=== PATIENT | male | born 1960 | race Caucasian/White ===

== ENCOUNTER 2017-07-24 21:41 | Observation (INO) | payer OTHER ==
[~2017-07-24] VITALS: Ht 175.3 cm; Wt 106.6 kg
--- NOTE | 2017-07-24 21:57 | RAD ---
CT CODE STROKE HEAD WO History: 778502.001 confusion, code stroke Comparison: None. Technique: Noncontrast CT imaging was performed of the head. Exposure: One or more of the following individualized dose reduction techniques were utilized for this examination: 1. Automated exposure control 2. Adjustment of the mA and/or kV according to patient size 3. Use of iterative reconstruction technique. Findings: No acute extra-axial or parenchymal hemorrhage is identified. There is no significant intra-axial mass effect, midline shift, or extra-axial fluid collection. The lee-white differentiation of the major vascular territories is preserved. The ventricles, sulci, and cisterns are within normal limits in size and configuration. There is a small old lacunar infarct of the right frontal white matter. The mastoid air cells and the visualized paranasal sinuses are aerated. No acute calvarial abnormality is identified. Impression: 1. No acute intracranial abnormality is identified. If there is concern for evolving or acute ischemia, followup CT or MRI could be beneficial. FOR INTERNAL CODING PURPOSES Critical result: Findings discussed with Dr. Bay at 07/24/2017 9:52 PM. RESULT CODE: (C) Electronically signed by: Edison Matias MD (07/24/2017 9:54 PM) [facility]
--- NOTE | 2017-07-24 22:06 | EKG ---
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
[2017-07-24 22:14] LABS: BASO % 1 % (0-3); EOS # 0.1 x10^3/uL (0.0-0.7); EOS % 2 % (0-3); HEMATOCRIT 43.8 % (39.0-53.0); HEMOGLOBIN 15.4 g/dL (13.0-17.5); LYMPH # 1.9 x10^3/uL (1.0-4.8); LYMPH % 24 % (24-48); MEAN CORPUSCULAR HEMOGLOBIN 30 pg (25-35); MEAN CORPUSCULAR HGB CONC 35 g/dL (31-37); MEAN CORPUSCULAR VOLUME 85 fL (79-100); MONO # 0.8 x10^3/uL (0.0-1.1); MONO % 10 % (0-9); NEUT % 64 % (31-73); PLATELET COUNT 215 x10^3/uL (140-400); RED BLOOD COUNT 5.16 x10^6/uL (4.30-5.70); RED CELL DISTRIBUTION WIDTH 14.2 % (11.5-14.5); WHITE BLOOD COUNT 7.9 x10^3/uL (4.0-11.0)
[2017-07-24 22:25] LABS: ALBUMIN 3.8 g/dL (3.4-5.0); ALBUMIN/GLOBULIN RATIO 1.1 (1.0-1.7); CALCIUM 8.5 mg/dL (8.5-10.1); CREATININE 1.1 mg/dL (0.7-1.3); GFR 69.2; POTASSIUM 3.6 mmol/L (3.5-5.1); TOTAL BILIRUBIN 0.3 mg/dL (0.2-1.0); TOTAL PROTEIN 7.2 g/dL (6.4-8.2)
--- NOTE | 2017-07-24 22:53 | PHYS DOC ---
General Chief Complaint: WEAKNESS/GENERALIZED Stated Complaint: NECK PAIN Time Seen by MD: 21:44 Source: patient Exam Limitations: no limitations Problems: History of Present Illness Initial Comments Patient is a 57-year-old male the ED by EMS with jaw/neck discomfort and left arm numbness. Patient states that these symptoms started approximately 30 minutes prior to ED arrival while sitting on the sofa at home watching TV with his immediately after intercourse. He states that he had some mild shortness of breath and nausea with no vomiting he denies any actual chest pain, headache, focal weakness, or dyspnea. Last by mouth intake was approximately 6 PM this evening. Patient states that on my evaluation his symptoms have resolved completely and he feels like he wants to go home. A code stroke was called by the ED staff on patient arrival and CT of the head is negative for any acute findings. Patient took an aspirin this evening shortly before symptoms onset. Patient follows at [facility], he has history of hypertension, hyperlipidemia, and TIA. He had a nuclear stress test at a few days ago he does not have results of that study. His father developed coronary artery disease at 55 years of age and has had multiple CABGs and a defibrillator. Timing/Duration: 1/2 hour Severity: moderate Modifying Factors: improves with other Associated Symptoms: nausea/vomiting, other Allergies: Coded Allergies: No Known Drug Allergies (Unverified , 07/24/17) Past Medical History Medical History: high cholesterol, hypertension, other (TIA) Surgical History: tonsillectomy Social History Smoker: quit greater than 1 year Alcohol: occasionally Drugs: none Review of Systems Constitutional: denies chills, diaphoresis, denies fever, denies malaise, denies weakness EENTM: see HPI, denies eye pain, denies blurred vision, denies ear pain, denies nose pain Respiratory: denies cough, shortness of breath, denies wheezing Cardiovascular: see HPI, denies palpitations, denies syncope Gastrointestinal: denies abdominal pain, nausea, denies vomiting Musculoskeletal: see HPI, denies back pain, denies joint pain, denies joint swelling Psychiatric/Neurological: see HPI, denies headache, denies paresthesia, denies pre-existing deficit, denies seizure Hematologic/Lymphatic: denies blood clots, denies easy bleeding, denies easy bruising Physical Exam General Appearance: no apparent distress, obese Eyes: bilateral eye normal inspection, bilateral eye PERRL, bilateral eye EOMI Ear, Nose, Throat: hearing grossly normal, normal ENT inspection, normal pharynx Neck: non-tender, supple Respiratory: chest non-tender, normal breath sounds, no respiratory distress Cardiovascular: normal peripheral pulses, regular rate, rhythm, no edema Gastrointestinal: normal bowel sounds, non tender, soft Back: no CVA tenderness, no vertebral tenderness Extremities: normal range of motion, non-tender, normal inspection 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 PHYSICIAN: EPIFANIO SALCEDO DO REASON: confusion PROCEDURE: CT CODE STROKE HEAD WO CT CODE STROKE HEAD WO History: 030446.001 confusion, code stroke Comparison: None. Technique: Noncontrast CT imaging was performed of the head. Exposure: One or more of the following individualized dose reduction techniques were utilized for this examination: 1. Automated exposure control 2. Adjustment of the mA and/or kV according to patient size 3. Use of iterative reconstruction technique. Findings: No acute extra-axial or parenchymal hemorrhage is identified. There is no significant intra-axial mass effect, midline shift, or extra-axial fluid collection. The lee-white differentiation of the major vascular territories is preserved. The ventricles, sulci, and cisterns are within normal limits in size and configuration. There is a small old lacunar infarct of the right frontal white matter. The mastoid air cells and the visualized paranasal sinuses are aerated. No acute calvarial abnormality is identified. Impression: 1. No acute intracranial abnormality is identified. If there is concern for evolving or acute ischemia, followup CT or MRI could be beneficial. FOR INTERNAL CODING PURPOSES Critical result: Findings discussed with Dr. Salcedo at 07/24/2017 9:52 PM. RESULT CODE: (C) Electronically signed by: Carline Matias MD (07/24/2017 9:54 PM) [facility] DICTATED AND SIGNED BY: CARLINE MATIAS MD DATE: 07/24/172151 CC: EPIFANIO SALCEDO DO ~ Given the patient's coronary artery disease risks tonight symptoms are consistent with a chest pain equivalent. EKG: Normal sinus rhythm 88 bpm, right axis deviation with some contour abnormalities no STEMI. Interpreted by Dr. Salcedo. Portable chest x-ray with no acute processes interpreted by Dr. Salcedo. Lab evaluation reassuring. 2342: I discussed results with the patient at length. Given the temporal in nature of his symptoms as well as his risk factors I recommend observation admission for serial cardiac enzymes. The patient has been asymptomatic since ED arrival and is considering signing out AMA. He is currently discussing this with his spouse. 0002: RN notified me pt agreeable to observation admission, Dr Fraire paged. 0007: I discussed the patient with Dr. Fraire who accepts observation telemetry admission to follow cardiac enzymes. Departure Time of Disposition: 00:07 Disposition: ADMITTED INPATIENT Diagnosis: chest pain, hypertension, hyperlipidemia Condition: IMPROVED Additional Instructions: Tele/obs admission to follow serial cardiac enzymes/rule out [place], Dr Fraire is accepting. EPIFANIO SALCEDO DO Jul 24, 2017 22:53
[2017-07-24 23:17] LABS: BARBITURATES NEG (NEG); BENZODIAZEPINES NEG (NEG); CANNABINOIDS NEG (NEG); COCAINE NEG (NEG); METHADONE NEG (NEG); OPIATES NEG (NEG); PHENCYCLIDINE NEG (NEG)
[2017-07-24 23:18] LABS: AMPHETAMINE/METHAMPHETAMINE NEG (NEG)
[2017-07-24 23:32] LABS: SEDIMENTATION RATE 4 (0-15)
[2017-07-25] MEDS ORDERED: ACETAMINOPHEN 325 MG TABLET PO PRN (00:15)
[2017-07-25] MEDS ORDERED: ONDANSETRON PF 4 MG/2 ML VIAL. IV PRN (00:15)
[2017-07-25] MEDS ORDERED: NITROGLYCERIN SUBLINGUAL 0.4 MG BOTTLE OF 25. SL PRN (00:15)
[2017-07-25 00:45] VITALS: BP 138/88
[2017-07-25 00:50] VITALS: BP 150/100
[2017-07-25 03:00] VITALS: BP 110/73
[2017-07-25] MEDS ORDERED: ASPI81TA50 (04:15)
[2017-07-25] MEDS ORDERED: LISI10TA2 (04:15)
[2017-07-25] MEDS ORDERED: HYDR12.58 (04:15)
[2017-07-25] MEDS ORDERED: ATOR40TA59 (04:15)
[2017-07-25 04:39] LABS: BASO # 0.1 x10^3/uL (0.0-0.2); BASO % 1 % (0-3); EOS % 0 % (0-3); HEMOGLOBIN 14.9 g/dL (13.0-17.5); LYMPH # 1.4 x10^3/uL (1.0-4.8); LYMPH % 17 % (24-48); MEAN CORPUSCULAR HEMOGLOBIN 30 pg (25-35); MEAN CORPUSCULAR HGB CONC 36 g/dL (31-37); MEAN CORPUSCULAR VOLUME 85 fL (79-100); MONO # 0.7 x10^3/uL (0.0-1.1); MONO % 8 % (0-9); NEUT # 5.9 x10^3uL (1.8-7.7); NEUT % 74 % (31-73); PLATELET COUNT 213 x10^3/uL (140-400); RED BLOOD COUNT 4.93 x10^6/uL (4.30-5.70); RED CELL DISTRIBUTION WIDTH 14.3 % (11.5-14.5)
[2017-07-25 04:56] LABS: ALBUMIN 3.6 g/dL (3.4-5.0); ALBUMIN/GLOBULIN RATIO 1.1 (1.0-1.7); CALCIUM 8.7 mg/dL (8.5-10.1); CREATININE 1.1 mg/dL (0.7-1.3); GFR 69.2; MAGNESIUM 2.2 mg/dL (1.8-2.4); POTASSIUM 4.3 mmol/L (3.5-5.1); TOTAL BILIRUBIN 0.3 mg/dL (0.2-1.0); TOTAL PROTEIN 6.9 g/dL (6.4-8.2)
[2017-07-25 05:53] VITALS: BP 128/78
--- NOTE | 2017-07-25 07:44 | RAD ---
Portable chest, 07/24/2017: History: Chest and throat tightness The heart size and pulmonary vascularity are normal. The lungs are clear. There is no evidence of pleural fluid. IMPRESSION: No acute cardiopulmonary abnormality is detected.
--- NOTE | 2017-07-25 09:03 | PDOC2 ---
KENZIE CHRISTIANSON APRN 07/25/17 0903: CONSULT Date of Admission DATE: 07/25/17 TIME: 09:03 Reason for Consult: chest pain History of Present Illness Mr March is a 57 year old male with history of hyperlipidemia and newly diagnosed hypertension. He presented to the ED yesterday evening with complaints of chest tightness that radiated up into his neck and jaw with associated dyspnea and diaphoresis. His discomfort started post sexual activity , about 30 minutes prior to presenting to the ED. He was given NTG in the ED which he reports improved his discomfort. He reports a similar episode for which he was taken to [facility] within the last 2 months as well as a visit and workup for TIA due to an episode of sudden onset confusion with associated diaphoresis. His echocardiogram revealed EF 55%, no wall motion abn, borderline LVH and grade 1 diastolic dysfunction. Bubble study was negative. He recently underwent lexiscan myocardial perfusion imaging that was also negative. He denies any palpitations, lightheadedness or syncope. He did feel like he might pass out during the initial episode of chest discomfort. He was found to have uncontrolled blood pressure during both ER visits and recently started on lisinopril with HCTZ which he reports tolerating well. He denies any congestive symptoms or edema. He was experiencing left lower extremity swelling and pain in March for which he underwent venous duplex several times and ultimately was diagnosed with a hematoma in his left calf. This has resolved. He denies any regular exercise but is able to walk a flight of stairs without symptoms normally. Past Medical History hyperlipidemia, recently diagnosed HTN, TIA, Left calf hematoma Past Surgical History: Tonsillectomy Family History Father - CAD/CABG and ICD in his 50s 2 brothers with CAD Sister with hyperlipidemia Social History non smoker, no significant ETOH, no illicit drugs Current Medications Current Medications Ondansetron HCl (Zofran) 4 mg PRN Q4HRS PRN IV NAUSEA/VOMITING; Start 07/25/17 at 00:15; Stop 07/26/17 at 00:14 Acetaminophen (Tylenol) 650 mg PRN Q4HRS PRN PO FEVER; Start 07/25/17 at 00:15 ; Stop 07/26/17 at 00:14 Nitroglycerin (Nitrostat) 0.4 mg PRN Q5MIN PRN SL CHEST PAIN; Start 07/25/17 at 00:15; Stop 07/26/17 at 00:14 Active Scripts Active Reported Atorvastatin Calcium 40 Mg Tablet Hydrochlorothiazide Tablet (Hydrochlorothiazide) 12.5 Mg Tablet Lisinopril 10 Mg Tablet Aspir-Low (Aspirin) 81 Mg Tablet. Allergies: Coded Allergies: No Known Drug Allergies (Unverified , 07/24/17) Review of System as per HPI or negative General: Alert, Oriented X3, Cooperative, No acute distress HEENT: Atraumatic, EOMI, Mucous membr. moist/pink, Other (no carotid bruits) Lungs: Clear to auscultation, Normal air movement Heart: Regular rate, Normal S1, Normal S2, Other (no significant murmurs, no gallops, clicks or rubs) Abdomen: Normal bowel sounds, Soft, No tenderness Extremities: No clubbing, No cyanosis, No edema, Normal pulses Neuro: Normal speech, Strength at 5/5 X4 ext, Cranial nerves 3-12 NL Psych/Mental Status: Mental status NL, Mood NL VITALS Vital Signs Date Time Temp Pulse Resp B/P (MAP) Pulse Ox O2 Delivery O2 Flow Rate FiO2 07/25/17 05:53 97.9 76 128/78 (95) 96 Room Air 07/25/17 03:00 16 Labs Laboratory Tests Test 07/24/17 21:46 07/24/17 22:50 07/25/17 04:12 White Blood Count 7.9 x10^3/uL (4.0-11.0) 8.0 x10^3/uL (4.0-11.0) Red Blood Count 5.16 x10^6/uL (4.30-5.70) 4.93 x10^6/uL (4.30-5.70) Hemoglobin 15.4 g/dL (13.0-17.5) 14.9 g/dL (13.0-17.5) Hematocrit 43.8 % (39.0-53.0) 42.0 % (39.0-53.0) Mean Corpuscular Volume 85 fL (79-100) 85 fL (79-100) Mean Corpuscular Hemoglobin 30 pg (25-35) 30 pg (25-35) Mean Corpuscular Hemoglobin Concent 35 g/dL (31-37) 36 g/dL (31-37) Red Cell Distribution Width 14.2 % (11.5-14.5) 14.3 % (11.5-14.5) Platelet Count 215 x10^3/uL (140-400) 213 x10^3/uL (140-400) Neutrophils (%) (Auto) 64 % (31-73) 74 % (31-73) Lymphocytes (%) (Auto) 24 % (24-48) 17 % (24-48) Monocytes (%) (Auto) 10 % (0-9) 8 % (0-9) Eosinophils (%) (Auto) 2 % (0-3) 0 % (0-3) Basophils (%) (Auto) 1 % (0-3) 1 % (0-3) Neutrophils # (Auto) 5.0 x10^3uL (1.8-7.7) 5.9 x10^3uL (1.8-7.7) Lymphocytes # (Auto) 1.9 x10^3/uL (1.0-4.8) 1.4 x10^3/uL (1.0-4.8) Monocytes # (Auto) 0.8 x10^3/uL (0.0-1.1) 0.7 x10^3/uL (0.0-1.1) Eosinophils # (Auto) 0.1 x10^3/uL (0.0-0.7) 0.0 x10^3/uL (0.0-0.7) Basophils # (Auto) 0.0 x10^3/uL (0.0-0.2) 0.1 x10^3/uL (0.0-0.2) Erythrocyte Sedimentation Rate 4 (0-15) Prothrombin Time 9.9 SEC (9.4-11.4) Prothromb Time International Ratio 1.0 (0.9-1.1) Activated Partial Thromboplast Time 28 SEC (23-33) Sodium Level 141 mmol/L (136-145) 142 mmol/L (136-145) Potassium Level 3.6 mmol/L (3.5-5.1) 4.3 mmol/L (3.5-5.1) Chloride Level 103 mmol/L (98-107) 105 mmol/L (98-107) Carbon Dioxide Level 31 mmol/L (21-32) 29 mmol/L (21-32) Anion Gap 7 (6-14) 8 (6-14) Blood Urea Nitrogen 15 mg/dL (8-26) 13 mg/dL (8-26) Creatinine 1.1 mg/dL (0.7-1.3) 1.1 mg/dL (0.7-1.3) Estimated GFR (Cockcroft-Gault) 69.2 69.2 BUN/Creatinine Ratio 14 (6-20) 12 (6-20) Glucose Level 121 mg/dL (70-99) 120 mg/dL (70-99) Calcium Level 8.5 mg/dL (8.5-10.1) 8.7 mg/dL (8.5-10.1) Total Bilirubin 0.3 mg/dL (0.2-1.0) 0.3 mg/dL (0.2-1.0) Aspartate Amino Transf (AST/SGOT) 23 U/L (15-37) 20 U/L (15-37) Alanine Aminotransferase (ALT/SGPT) 43 U/L (16-63) 42 U/L (16-63) Alkaline Phosphatase 88 U/L (46-116) 74 U/L (46-116) Creatine Kinase 86 U/L (39-308) Troponin I Quantitative < 0.017 ng/mL (0-0.055) < 0.017 ng/mL (0-0.055) Total Protein 7.2 g/dL (6.4-8.2) 6.9 g/dL (6.4-8.2) Albumin 3.8 g/dL (3.4-5.0) 3.6 g/dL (3.4-5.0) Albumin/Globulin Ratio 1.1 (1.0-1.7) 1.1 (1.0-1.7) Ethyl Alcohol Level < 10 mg/dL (0-10) Urine Opiates Screen Neg (NEG) Urine Methadone Screen Neg (NEG) Urine Barbiturates Neg (NEG) Urine Phencyclidine Screen Neg (NEG) Urine Amphetamine/Methamphetamine Neg (NEG) Urine Benzodiazepines Screen Neg (NEG) Urine Cocaine Screen Neg (NEG) Urine Cannabinoids Screen Neg (NEG) Urine Ethyl Alcohol Neg (NEG) Magnesium Level 2.2 mg/dL (1.8-2.4) Images EKG - sinus rhythm, right axis, R v2, nonspecific lateral T abn. CXR - no acute abn Head CT - Impression: 1. No acute intracranial abnormality is identified. If there is concern for evolving or acute ischemia, followup CT or MRI could be beneficial. Assessment/Plan 1. Exertional chest pain relieved with NTG suspicious for angina - FL ruled out. Recent MPI was normal however with significant family history of premature coronary disease and multiple risk factors as well as recurrent episodes of chest pain, will recommend cardiac cath for definitive evaluation. Continue aspirin, add beta uriah, check lipids and transfer to [facility] for cath today. Keep NPO. 2. hypertension - resume home meds 3. hyperlipidemia - continue statin and check FLP. 4. PAD - moderate renal arterial stenosis by duplex recently. Problems: ELSY BALDERRAMA MD 07/25/17 2224: CONSULT Allergies: Coded Allergies: No Known Drug Allergies (Unverified , 07/24/17) Assessment/Plan Pt. seen and examined. underwent PCI to the RCA [employer] care will follow along Problems: KENZIE CHRISTIANSON APRN Jul 25, 2017 09:03 ELSY BALDERRAMA MD Jul 25, 2017 22:24
[2017-07-25 10:26] VITALS: BP 124/74
[2017-07-25] MEDS ORDERED: METOPROLOL TART IMMED RELEASE 25 MG TABLET PO SCH (12:00)
[2017-07-25] MEDS ORDERED: ASPIRIN ENTERIC COATED 325 MG TABLET.DR. PO SCH (12:00)
[2017-07-25] MEDS ORDERED: ATORVASTATIN CALCIUM 20 MG TABLET PO SCH (21:00)
--- NOTE | 2017-07-25 22:30 | DS ---
DATE OF DISCHARGE: 07/25/2017 SHORT STAY SUMMARY Stay was greater than 8 hours and less than 24. DISCHARGE DIAGNOSES: 1. Chest pain, suspect anginal equivalent. 2. Hyperlipidemia. 3. Hypertension. 4. History of transient ischemic attack. 5. Former tobacco use disorder. HOSPITAL COURSE: A 57-year-old male who was admitted right after midnight from the Emergency Room where he presented with jaw and neck discomfort and left arm numbness. These symptoms started 30 minutes prior to coming to the ED while he was sitting at home watching TV with his immediately after intercourse. He also has some shortness of breath and nausea, but no vomiting. A code stroke was called in the Emergency Room and he had a CT of the head. Vital signs 128/78, pulse 76, pulse ox 96% on room air, temperature 97.9. Please note the patient was not examined because he was not seen directly by myself. He was seen by Cardiology, who recommended a transfer. REVIEW OF SYSTEMS: Positive for diaphoresis, shortness of breath, nausea. PLAN: After being seen by Cardiology they have felt that he should be transferred to [place] for a semi-emergent catheterization this afternoon. PAST MEDICAL HISTORY: He recently was just seen in and had a stress test, which evidently was negative. FAMILY HISTORY: Positive for coronary artery disease in his father and who has had multiple CABGs and a defibrillator. LABORATORY DATA: Troponins were negative x 3. EKG shows no NSTEMI. DISPOSITION: To transfer to [place] for cardiac catheterization. ELDA DONALD DO DR: WIL/rodolfo JOB#: [id number] / [id number]
== END 2017-07-25 11:25 | disposition short-term general hospital (02) ==
LOC: ER 21:41 → 1 SOUTH 07-25 00:19 → ER 07-25 00:35
PROVIDERS: ADMIT Family Medicine; ATTEND Family Medicine
DX: R07.9 Chest pain, unspecified (principal); E78.5 Hyperlipidemia, unspecified; I10 Essential (primary) hypertension; E78.00 Pure hypercholesterolemia, unspecified; I77.1 Stricture of artery; Z82.49 Family history of ischemic heart disease and other diseases of the circulatory system; Z86.73 Personal history of transient ischemic attack (TIA), and cerebral infarction without residual deficits; Z87.891 Personal history of nicotine dependence
CPT/HCPCS: 36415; 70450; 71010; 80053; 80061; 80307; 82550; 83735; 84484; 85025; 85610; 85651; 85730; 93005; 99285; G0378; G0480; G0379; G0479

== ENCOUNTER 2019-09-24 14:51 | Emergency (ER) | payer OTHER ==
[~2019-09-24] VITALS: Ht 175.3 cm; Wt 110.2 kg
[~2019-09-24 14:51] MED LIST: ASPI81TA50; ATOR40TA59; HYDR12.58; LISI10TA2
[2019-09-24 15:28] LABS: INFLUENZA A PATIENT NEGATIVE (NEGATIVE); INFLUENZA B PATIENT NEGATIVE (NEGATIVE)
--- NOTE | 2019-09-24 15:35 | PHYS DOC ---
Past History Past Medical History: High Cholesterol, Hypertension, TIA Past Surgical History: Tonsillectomy Additional Past Surgical Histo: 2 stents Alcohol Use: Occasionally Drug Use: None Adult General Chief Complaint Chief Complaint: FLU SYMPTOM HPI HPI 59-year-old male presents with cough, congestion, body aches for the last 4 days. He started to have a fever and worsening body aches yesterday and it is worse today. He went to primary care physician yesterday that his achalasia was negative. He was placed on amoxicillin for an unspecified bacterial infection and given Robitussin for his cough. Patient is a fever up to 102 at home and is concerned it may be more than previously thought. He is taking his medication. Review of Systems Review of Systems Constitutional: Fever[] Eyes: Denies change in visual acuity, redness, or eye pain [] HENT: nasal congestion [] Respiratory: Cough with shortness of breath [] Cardiovascular: No additional information not addressed in HPI [] GI: Denies abdominal pain, nausea, vomiting, bloody stools or diarrhea [] : Denies dysuria or hematuria [] Musculoskeletal: Denies back pain or joint pain [] Integument: Denies rash or skin lesions [] Neurologic: Denies headache, focal weakness or sensory changes [] Endocrine: Denies polyuria or polydipsia [] All other systems were reviewed and found to be within normal limits, except as documented in this note. Allergies Allergies Allergies Coded Allergies Type Severity Reaction Last Updated Verified No Known Drug Allergies 07/24/17 No Physical Exam Physical Exam Constitutional: Well developed, well nourished, no acute distress, non-toxic appearance. [] HENT: Normocephalic, atraumatic, bilateral external ears normal, oropharynx moist, no oral exudates, nose normal. [] Eyes: PERRLA, EOMI, conjunctiva normal, no discharge. [] Neck: Normal range of motion, no tenderness, supple, no stridor. [] Cardiovascular:Heart rate regular rhythm, no murmur [] Lungs & Thorax: Coughing. Bilateral breath sounds clear to auscultation [] Abdomen: Bowel sounds normal, soft, no tenderness, no masses, no pulsatile masses. [] Skin: Warm, dry, no erythema, no rash. [] Back: No tenderness, no CVA tenderness. [] Extremities: No tenderness, no cyanosis, no clubbing, ROM intact, no edema. [] Neurologic: Alert and oriented X 3, normal motor function, normal sensory function, no focal deficits noted. [] Psychologic: Affect normal, judgement normal, mood normal. [] Current Patient Data Vital Signs Vital Signs Date Time Temp Pulse Resp B/P (MAP) Pulse Ox O2 Delivery O2 Flow Rate FiO2 09/24/19 15:11 99.2 78 16 95 Room Air Lab Results Laboratory Tests Test 09/24/19 14:56 Influenza Type A (Rapid) Negative (NEGATIVE) Influenza Type B (Rapid) Negative (NEGATIVE) EKG EKG [] Radiology/Procedures Radiology/Procedures [] Impressions: EXAM: Chest, 2 views. HISTORY: Cough. COMPARISON: 07/24/2017 FINDINGS: 2 views of the chest are obtained. There is anterior inferior left upper lobe infiltrate. There is no pleural effusion or pneumothorax. The heart is normal in size. IMPRESSION: Left upper lobe infiltrate. Follow-up to confirm resolution. Electronically signed by: Roseanne Garcia MD (09/24/2019 3:52 PM) [place] [id number] DICTATED AND SIGNED BY: ROSEANNE GARCIA MD DATE: 09/24/19 1559 CC: KAREN FLANAGAN DO; NINA SUERO MD ~ Course & Med Decision Making Course & Med Decision Making Pertinent Labs and Imaging studies reviewed. (See chart for details) The patient is negative for influenza. His chest x-ray does show right upper lobe infiltrate. I will treat him with a gram of Rocephin in the ED as well as 500 mg of azithromycin. I will discharge him with an additional 4 days of azithromycin. He is stable for discharge at this time. [] Dragon Disclaimer Dragon Disclaimer This electronic medical record was generated, in whole or in part, using a voice recognition dictation system. Departure Departure: Impression: Primary Impression: Pneumonia Disposition: HOME/RESIDENCE PRIOR TO ADM Condition: STABLE Referrals: NINA SUERO MD (PCP) Patient Instructions: Pneumonia, Adult, [id number] Scripts Azithromycin (AZITHROMYCIN TABLET) 250 Mg Tablet 250 MG PO DAILY for ANTI-BIOTIC for 4 Days, #4 TAB 0 Refills Prov: KAREN FLANAGAN DO 09/24/19 Problem Qualifiers Primary Impression: Pneumonia Pneumonia type: due to unspecified organism Laterality: right Lung location: upper lobe of lung Qualified Codes: J18.9 - Pneumonia, unspecified organism KAREN FLANAGAN DO Sep 24, 2019 15:35
--- NOTE | 2019-09-24 15:55 | RAD ---
EXAM: Chest, 2 views. HISTORY: Cough. COMPARISON: 07/24/2017 FINDINGS: 2 views of the chest are obtained. There is anterior inferior left upper lobe infiltrate. There is no pleural effusion or pneumothorax. The heart is normal in size. IMPRESSION: Left upper lobe infiltrate. Follow-up to confirm resolution. Electronically signed by: Roseanne Garcia MD (09/24/2019 3:52 PM) [place] [id number]
[2019-09-24] MEDS ORDERED: AZIT250T6 PO (16:04)
[2019-09-24 16:07] VITALS: BP 125/79
[2019-09-24] MEDS ORDERED: cefTRIAXone IM 1 GM VIAL IM ONE (16:15)
[2019-09-24] MEDS ORDERED: AZITHROMYCIN 250 MG TABLET. PO ONE (16:15)
== END 2019-09-24 16:34 | disposition home or self-care (01) ==
LOC: ER 14:51
DX: J18.9 Pneumonia, unspecified organism (principal); E78.00 Pure hypercholesterolemia, unspecified; I10 Essential (primary) hypertension; Z86.73 Personal history of transient ischemic attack (TIA), and cerebral infarction without residual deficits; Z90.89 Acquired absence of other organs
CPT/HCPCS: 71046; 87804; 96372; 99285; J0456; J0696

== ENCOUNTER 2021-08-28 16:53 | Emergency (ER) | payer OTHER ==
[~2021-08-28] VITALS: Ht 175.3 cm; Wt 117.3 kg
[~2021-08-28 16:53] MED LIST changes: +AZIT250T6 PO; +LISI10TA16; -LISI10TA2
--- NOTE | 2021-08-28 17:43 | EKG ---
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
--- NOTE | 2021-08-28 17:59 | RAD ---
AP chest. HISTORY: Short of breath AP view was taken of the chest. Patient's taken a poor inspiration. There are no acute infiltrates. T here is no effusion. Heart is normal in size. IMPRESSION: 1. No acute infiltrates. Electronically signed by: Yan Alva MD (08/28/2021 5:57 PM) [facility]
[2021-08-28 19:31] LABS: BASO % 1 % (0-3); EOS # 0.1 x10^3/uL (0.0-0.7); EOS % 2 % (0-3); HEMATOCRIT 42.3 % (39.0-53.0); HEMOGLOBIN 14.4 g/dL (13.0-17.5); LYMPH # 0.7 x10^3/uL (1.0-4.8); LYMPH % 10 % (24-48); MEAN CORPUSCULAR HEMOGLOBIN 30 pg (25-35); MEAN CORPUSCULAR HGB CONC 34 g/dL (31-37); MEAN CORPUSCULAR VOLUME 87 fL (79-100); MONO # 0.9 x10^3/uL (0.0-1.1); MONO % 14 % (0-9); NEUT # 4.8 x10^3uL (1.8-7.7); NEUT % 73 % (31-73); PLATELET COUNT 168 x10^3/uL (140-400); RED BLOOD COUNT 4.84 x10^6/uL (4.30-5.70); RED CELL DISTRIBUTION WIDTH 14.1 % (11.5-14.5); WHITE BLOOD COUNT 6.5 x10^3/uL (4.0-11.0)
[2021-08-28 19:39] LABS: CALCIUM 8.1 mg/dL (8.5-10.1); CREATININE 0.8 mg/dL (0.7-1.3); GFR 98.6; POTASSIUM 3.8 mmol/L (3.5-5.1)
[2021-08-28 19:58] LABS: ALBUMIN 3.5 g/dL (3.4-5.0); ALBUMIN/GLOBULIN RATIO 0.9 (1.0-1.7); TOTAL BILIRUBIN 0.6 mg/dL (0.2-1.0); TOTAL PROTEIN 7.2 g/dL (6.4-8.2)
[2021-08-28] MEDS ORDERED: BENZ100C PO (20:44)
[2021-08-28] MEDS ORDERED: AMOX1TAB61 PO (20:44)
--- NOTE | 2021-08-28 20:44 | PHYS DOC ---
Past History Past Medical History: High Cholesterol, Hypertension, TIA (DEEPAK CHAUDHRY APRN) Past Surgical History: Tonsillectomy Additional Past Surgical Histo: 2 stents (DEEPAK CHAUDHRY APRN) Alcohol Use: Occasionally Drug Use: None (DEEPAK CHAUDHRY APRN) Adult General Chief Complaint Chief Complaint: SHORTNESS OF BREATH HPI HPI Patient is a 51-year-old male presents to the emergency department complaining of nasal congestion and upper chest congestion with productive yellow phlegm with cough for the past week. Patient denies recent fever or chills, denies chest pains. States he does get short of breath at times. Denies diaphoretic episodes. Denies nausea, vomiting, diarrhea or abdominal pains. Patient denies body aches or loss of taste or loss of smell. Patient reports receiving the COVID-19 virus vaccine. Patient denies other physical complaints or physical concerns. (DEEPAK CHAUDHRY APRN) Review of Systems Review of Systems 14 body systems of review of systems have been reviewed. See HPI for pertinent positives and negative responses, otherwise all other systems are negative, nonpertinent or noncontributory. Constitutional: Negative except as outlined in HPI above. Skin: Negative except as outlined in HPI above. Eyes: Negative except as outlined in HPI above. HENT: Negative except as outlined in HPI above. Respiratory: Negative except as outlined in HPI above. Cardiovascular: Negative except as outlined in HPI above. GI: Negative except as outlined in HPI above. : Negative except as outlined in HPI above. Musculoskeletal: Negative except as outlined in HPI above. Integument: Negative except as outlined in HPI above. Neurologic: Negative except as outlined in HPI above. Endocrine: Negative except as outlined in HPI above. Lymphatic: Negative except as outlined in HPI above. Psychiatric: Negative except as outlined in HPI above. (DEEPAK CHAUDHRY APRN) Allergies Allergies Allergies Coded Allergies Type Severity Reaction Last Updated Verified No Known Drug Allergies 07/24/17 No (DEEPAK CHAUDHRY APRN) Physical Exam Physical Exam Constitutional: Well developed, well nourished, no acute distress, non-toxic appearance. 61-year-old male in no apparent distress. HENT: Normocephalic, atraumatic. Oropharynx moist, pink, no deep tissue infectious process appreciated however does have clear postnasal drip, no lymphadenopathy of the head or neck appreciated, no drooling, no trismus, bilateral nasal turbinates boggy with scant clear drainage. Eyes: Conjunctiva normal, no discharge. Neck: Normal range of motion, no stridor. Cardiovascular: No cyanosis appreciated, distal cap refill less than 2 seconds. Lungs & Thorax: Patient is in no respiratory distress, no audible adventitious lung sounds appreciated. Lung sounds clear to auscultation all lung hong. Normal work of breathing. Abdomen: Nontender, no abnormalities noted. Skin: Warm, dry, no erythema, no rash. Back: No tenderness, no deformities. Extremities: No tenderness, no cyanosis, no clubbing, ROM intact, no edema. Neurologic: Alert and oriented X 3, normal motor function, normal sensory function, no focal deficits noted. Psychologic: Affect normal, judgement normal, mood normal. (DEEPAK CHAUDHRY APRN) Current Patient Data Vital Signs Vital Signs Date Time Temp Pulse Resp B/P (MAP) Pulse Ox O2 Delivery O2 Flow Rate FiO2 08/28/21 16:53 99.3 80 20 140/85 (103) 97 Room Air Lab Results Laboratory Tests Test 08/28/21 18:17 08/28/21 18:42 White Blood Count 6.5 x10^3/uL (4.0-11.0) Red Blood Count 4.84 x10^6/uL (4.30-5.70) Hemoglobin 14.4 g/dL (13.0-17.5) Hematocrit 42.3 % (39.0-53.0) Mean Corpuscular Volume 87 fL (79-100) Mean Corpuscular Hemoglobin 30 pg (25-35) Mean Corpuscular Hemoglobin Concent 34 g/dL (31-37) Red Cell Distribution Width 14.1 % (11.5-14.5) Platelet Count 168 x10^3/uL (140-400) Neutrophils (%) (Auto) 73 % (31-73) Lymphocytes (%) (Auto) 10 % (24-48) L Monocytes (%) (Auto) 14 % (0-9) H Eosinophils (%) (Auto) 2 % (0-3) Basophils (%) (Auto) 1 % (0-3) Neutrophils # (Auto) 4.8 x10^3uL (1.8-7.7) Lymphocytes # (Auto) 0.7 x10^3/uL (1.0-4.8) L Monocytes # (Auto) 0.9 x10^3/uL (0.0-1.1) Eosinophils # (Auto) 0.1 x10^3/uL (0.0-0.7) Basophils # (Auto) 0.0 x10^3/uL (0.0-0.2) D-Dimer (Renu) 0.36 mg/L (0.00-0.50) Sodium Level 135 mmol/L (136-145) L Potassium Level 3.8 mmol/L (3.5-5.1) Chloride Level 101 mmol/L (98-107) Carbon Dioxide Level 26 mmol/L (21-32) Anion Gap 8 (6-14) Blood Urea Nitrogen 11 mg/dL (8-26) Creatinine 0.8 mg/dL (0.7-1.3) Estimated GFR (Cockcroft-Gault) 98.6 BUN/Creatinine Ratio 14 (6-20) Glucose Level 105 mg/dL (70-99) H Calcium Level 8.1 mg/dL (8.5-10.1) L Total Bilirubin 0.6 mg/dL (0.2-1.0) Aspartate Amino Transferase (AST) 28 U/L (15-37) Alanine Aminotransferase (ALT) 42 U/L (16-63) Alkaline Phosphatase 71 U/L (46-116) Creatine Kinase 166 U/L (39-308) Creatine Kinase MB (Mass) 0.7 ng/mL (0.0-3.6) Creatine Kinase MB Relative Index 0.4 % (0-4) Troponin I Quantitative < 0.017 ng/mL (0-0.055) ZC-Hfw-D-Type Natriuretic Peptide 229 pg/mL (0-124) H Total Protein 7.2 g/dL (6.4-8.2) Albumin 3.5 g/dL (3.4-5.0) Albumin/Globulin Ratio 0.9 (1.0-1.7) L SARS-CoV-2 Antigen (Rapid) Negative (NEGATIVE) (DEEPAK CHAUDHRY APRN) EKG EKG EKG performed at 1725 by ED nursing staff shows a normal sinus rhythm without other ectopy, heart rate 74 bpm, NV interval 0.138, QT 0.384, no acute STEMI, no ACS, no acute ischemia appreciated, EKG interpreted by ED attending physician Dr. Stone. (DEEPAK CHAUDHRY APRN) Radiology/Procedures Radiology/Procedures PATIENT: LUPE FARR ACCOUNT: [id number] : 1960 LOCATION: ER AGE: 61 SEX: M EXAM STATUS: REG ER ORD. PHYSICIAN: DEEPAK CHAUDHRY APRN REASON: Short of breath PROCEDURE: CHEST AP ONLY AP chest. HISTORY: Short of breath AP view was taken of the chest. Patient's taken a poor inspiration. There are no acute infiltrates. There is no effusion. Heart is normal in size. IMPRESSION: 1. No acute infiltrates. Electronically signed by: Yan Alva MD (08/28/2021 5:57 PM) [facility] (DEEPAK CHAUDHRY APRN) Heart Score C/O Chest Pain: No Risk Factors: Risk Factors: DM, Current or recent (<one month) smoker, HTN, HLP, family history of CAD, obesity. Risk Scores: Risk Factors: DM, Current or recent (<one month) smoker, HTN, HLP, family histo ry of CAD, obesity. (DEEPAK CHAUDHRY APRN) Course & Med Decision Making Course & Med Decision Making Pertinent Labs and Imaging studies reviewed. (See chart for details) 61-year-old male, vital signs reviewed, presents emergency from discerning nasal and chest congestion. Does complain of shortness of breath, patient is 61 years old, will order cardiorespiratory work-up, physical examination is consistent with sinus infection. Will order COVID-19 testing. There is no sore throat or lymphadenopathy of the head or neck or peritonsillar swelling, this is unlikely a strep throat or pharyngitis. Patient's cardiorespiratory work-up labs EKG and chest x-ray negative for acute process. Discussed findings with patient, will order antibiotic and cough medicine along with prescription for antibiotic and cough medicine. We will diagnosed with sinus infection, strict follow-up with primary care next week if not becoming significantly better, return to ER precautions or concerns. Patient is amenable to ED discharge planning. Discussed with the patient all findings and diagnostic testing as well as the need to follow-up with their primary care provider for further evaluation and treatment or return to the ED if any new or worsening symptoms. Strict return precautions were also discussed at length, the patient voiced understanding and agreement with the discharge planning. The patient was nontoxic in appearance, in no apparent distress, and hemodynamically stable at the time of disposition. (DEEPAK CHAUDHRY APRN) Dragon Disclaimer Dragon Disclaimer This electronic medical record was generated, in whole or in part, using a voice recognition dictation system. (DEEPAK CHAUDHRY APRN) Departure Departure: Impression: Primary Impression: Sinus infection Disposition: HOME / SELF CARE / HOMELESS Condition: GOOD Referrals: NINA SUERO MD (PCP) Patient Instructions: Sinusitis Additional Instructions: You presented to emergency department with upper respiratory congestion with ch est congestion and cough along with shortness of breath, you had risk factors that warranted a cardiorespiratory work-up. This is reassuring and that you are not having a heart attack or pneumonia, you do not have signs of congestive heart failure, you do not have any concerning signs of a blood clot in your lungs or elsewhere in your body. I am treating you today for sinusitis. Please take antibiotic and cough medication prescriptions as directed. Please follow- up with your primary care physician next week if not significantly better. Return to the emergency department for worsening symptoms or other concerns. Thank you for visiting our Emergency Department. It was a pleasure taking care of you today in the emergency department and we appreciate you trusting us with your care. If any additional problems come up don't hesitate to return to visit us. Please follow up with your primary care provider so they can plan additional care if needed and know about the problem that you had. If symptoms worsen come back to the Emergency Department. Any concerning symptoms that start such as chest pain, shortness of air, weakness or numbness on one side of the body, running high fevers or any other concerning symptoms return to the ER. EMERGENCY DEPARTMENT GENERAL DISCHARGE INSTRUCTIONS Thank you for coming to [facility] (ED) today and trusting us with you care. We trust that you had a positivie experience in our Emergency Department. If you wish to speak to the department management, you may call the director at [phone]. YOUR FOLLOW UP INSTRUCTIONS ARE FOLLOWS: 1. Do you have a private Doctor? If you do not have a private doctor, please ask for a resource list of physicians or clinics that may be able to assist you with follow up care. 2. The Emergency Physician has interpreted your x-rays. The X-Ray specialist will also review them. If there is a change in the findings, you will be notified in 48 hours when at all possible. 3. A lab test or culture has been done, your results will be reviewed and you will be notified if you need a change in treatment. ADDITIONAL INSTRUCTIONS AND INFORMATION: 1. Your care today has been supervised by a physician who is specially trained in emergency care. Many problems require more than one evaluation for a complete diagnosis and treatment. We recommend that you schedule your follow up appointment as recom mended to ensure complete treatment of you illness or injury. If you are unable to obtain follow up care and continue to have a problem, or if your condition worsens, we recommend that you return to the ED. 2. We are not able to safely determine your condition over the phone nor are we able to give sound medical advice over the phone. For these safety reasons, if you call for medical advice we will ask you to come to the ED for further evaluation. 3. If you have any questions regarding these discharge instructions please call the ED at [phone]. SAFETY INFORMATION: In the interest of safety, wellness, and injury prevention; we encourage you to wear your sealbelt, if you smoke; quite smoking, and we encourage family to use a protective helmet for bicycling and other sporting events that present an increased risk for head injury. IF YOUR SYMPTOMS WORSEN OR NEW SYMPTOMS DEVELOP, OR YOU HAVE CONCERNS ABOUT YOUR CONDITION; OR IF YOUR CONDITION WORSENS WHILE YOU ARE WAITING FOR YOUR FOLLOW UP APPOINTMENT; EITHER CONTACT YOUR PRIMARY CARE DOCTOR, THE PHYSICIAN WHOSE NAME AND NUMBER YOU WERE GIVEN, OR RETURN TO THE ED IMMEDIATELY. Scripts Benzonatate (TESSALON PERLE) 100 Mg Capsule 1 CAP PO TID for cough, #10 CAP 0 Refills Prov: DEEPAK CHAUDHRY APRN 08/28/21 Amoxicillin/Potassium Clav (AUGMENTIN 875-125 TABLET) 1 Each Tablet 1 TAB PO BID for sinus infection for 7 Days, #14 TAB 0 Refills Prov: DEEPAK CHAUDHRY APRN 08/28/21 Attending Signature Attending Signature I have participated in the care of this patient and I have reviewed and agree with all pertinent clinical information above including history, exam, and recommendations. (TERRY ALDANA MD) Problem Qualifiers Primary Impression: Sinus infection Sinusitis location: unspecified location Chronicity: acute Recurrence: not specified as recurrent Qualified Codes: J01.90 - Acute sinusitis, unspecified DEEPAK CHAUDHRY APRN Aug 28, 2021 20:44 TERRY ALDANA MD Aug 29, 2021 03:06
[2021-08-28] MEDS ORDERED: AMOXICILLIN/K CLAV 875/125MG TABLET. PO ONE (21:00)
[2021-08-28] MEDS ORDERED: BENZONATATE 100 MG CAPSULE. PO ONE (21:00)
[2021-08-28 21:30] VITALS: BP 147/85
== END 2021-08-28 21:32 | disposition home or self-care (01) ==
LOC: ER 16:53
DX: J32.9 Chronic sinusitis, unspecified (principal); Z90.49 Acquired absence of other specified parts of digestive tract; Z20.822 Contact with and (suspected) exposure to COVID-19; Z86.73 Personal history of transient ischemic attack (TIA), and cerebral infarction without residual deficits; E78.5 Hyperlipidemia, unspecified; I10 Essential (primary) hypertension
CPT/HCPCS: 36415; 71045; 80053; 82553; 83880; 84484; 85025; 85379; 87426; 93005; 99285; C9803; U0003

== ENCOUNTER → 2022-03-15 | Outpatient (CLI) | payer OTHER ==
[~2022-03-15] MED LIST changes: +AMOX1TAB61 PO; +BENZ100C PO
--- NOTE | 2022-03-15 17:41 | CARD ---
MR#: [id number] Date of Study: 03/15/2022 Ordering Physician: ELSY BALDERRAMA, Referring Physician: ELSY BALDERRAMA, Tech: Ganga Rodriguez [facility] APPROVED REPORT EXAM: Two-dimensional and M-mode echocardiogram with Doppler and color Doppler. Other Information Quality : AverageHR: 70bpm Rhythm : NSR INDICATION Cardiac Disease: CAD RISK FACTORS Hypertension Obesity Hyperlipidemia 2D DIMENSIONS Left Atrium(2D)4.8 (1.6-4.0cm)IVSd1.0 (0.7-1.1cm) Aortic Root(2D)3.6 (2.0-3.7cm)LVDd5.2 (3.9-5.9cm) LVOT Diameter2.3 (1.8-2.4cm)PWd1.0 (0.7-1.1cm) LA Gvjhvp74 (18-58mL)LVDs3.0 (2.5-4.0cm) FS (%) 43.0 %SV94.6 ml LVEF(%)73.8 (>50%) Aortic Valve AoV Peak Rohith.108.1cm/sAoV VTI20.4cm AO Peak GR.4.7mmHgLVOT Peak Rohith.102.8cm/s LVOT VTI 20.22cmAO Mean GR.3mmHg SKIP (VMAX)3.73ga5DNM (VTI)4.15cm2 Mitral Valve MV E Qlacabky01.8cm/sMV DECEL [id number] MV A Pnljhexb07.4cm/sE/A Ratio1.4 Pulmonary Valve PV Peak Qvfrdubv14.5cm/sPV Peak Grad.4mmHg Tricuspid Valve TR P. Uiohplzf689wm/sTR Peak Gr.21mmHg Pulmonary Vein S1 Yyeuwryg93.6cm/sD2 Mqxcijdg25.2cm/s LEFT VENTRICLE The left ventricle is normal size. There is normal left ventricular wall thickness. The left ventricu lar systolic function is normal and the ejection fraction is within normal range. EF 55% There is nor mal LV segmental wall motion. Tissue Doppler imaging reveals mild left ventricular diastolic dysfunct ion. No left ventricle thrombus noted on this study. There is no ventricular septal defect visualized . There is no left ventricular aneurysm. There is no mass noted in the left ventricle. RIGHT VENTRICLE The right ventricle is normal size. There is normal right ventricular wall thickness. The right ventr icular systolic function is normal. ATRIA The left atrium is mildly dilated. The right atrium size is normal. The interatrial septum is intact with no evidence for an atrial septal defect or patent foramen ovale as noted on 2-D or Doppler imagi ng. AORTIC VALVE The aortic valve is normal in structure and function. Doppler and Color Flow revealed no significant aortic regurgitation. There is no significant aortic valvular stenosis. There is no aortic valvular v egetation. MITRAL VALVE The mitral valve is normal in structure and function. There is no evidence of mitral valve prolapse. There is no mitral valve stenosis. Doppler and Color-flow revealed trace to mild mitral regurgitation . TRICUSPID VALVE The tricuspid valve is normal in structure and function. Doppler and Color Flow revealed trace to mil d tricuspid regurgitation. The PA pressure was estimated at 26 mmHg. There is no tricuspid valve prol apse or vegetation. There is no tricuspid valve stenosis. PULMONIC VALVE Doppler and Color Flow revealed no pulmonic valvular regurgitation. There is no pulmonic valvular elizabeth nosis. GREAT VESSELS The aortic root is normal in size. The ascending aorta is normal in size. The IVC is normal in size a nd collapses >50% with inspiration. PERICARDIAL EFFUSION There is no pleural effusion. There is no evidence of significant pericardial effusion. Critical Notification Critical Value: No <Conclusion> The left ventricular systolic function is normal and the ejection fraction is within normal range. EF 55% There is normal LV segmental wall motion. Signed by : Elsy Balderrama, Electronically Approved : 03/15/2022 17:40:11
== END ==
LOC: ECHO 09:30
PROVIDERS: ATTEND Internal Medicine Cardiovascular Disease
DX: I08.1 Rheumatic disorders of both mitral and tricuspid valves (principal); I25.10 Atherosclerotic heart disease of native coronary artery without angina pectoris
CPT/HCPCS: 93306